=== PATIENT | female | born 1975 | race Caucasian/White ===

== ENCOUNTER 2019-05-07 18:41 | Emergency (ER) | payer OTHER ==
[2019-05-07 19:17] LABS: BILIRUBIN,URINE NEGATIVE (NEGATIVE); GLUCOSE, URINE (UA) NEGATIVE (NEGATIVE); KETONES,URINE (UA) NEGATIVE (NEGATIVE); LEUKOCYTE ESTERASE, URINE NEGATIVE (NEGATIVE); NITRITE,URINE NEGATIVE (NEGATIVE); OCCULT BLOOD,URINE NEGATIVE (NEGATIVE); PROTEIN,URINE NEGATIVE (NEGATIVE); UROBILINOGEN,URINE 0.2 (NORMAL) E.U./dL (NORMAL)
[2019-05-07 19:24] LABS: CLARITY,URINE CLEAR (CLEAR)
--- NOTE | 2019-05-07 20:04 | ED Physician Documentation ---
History of Present Illness - Stated complaint Stated Complaint: FEMALE - Chief complaint Chief Complaint: General - History obtained from History obtained from: Patient - Additonal information Additional information: Patient is a previously healthy 44-year-old female presenting with rash in the groin over the past several days. Patient is currently undergoing therapy with Macrobid for known UTI and reports the symptoms have resolved. Patient reports that she was swimming [place], camping, and having multiple sexual encounters with her over the past few days which she believes led to the rash.Patient denies history of STDs or concerns for such. Patient denies other vaginal bleeding, pain, or discharge. She also denies abdominal pain, nausea, vomiting, stool changes, or fever. No other improving or worsening factors noted. Review of Systems Constitutional: denies: Fever GI: denies: Abdominal Pain, Nausea, Vomiting, Diarrhea : denies: Dysuria, Vaginal bleeding Skin: reports: Rash PD PAST MEDICAL HISTORY - Past Medical History Past Medical History: Yes GI: GERD - Past Surgical History Past Surgical History: No - Present Medications Home Medications: Ambulatory Orders Medication Instructions Recorded Confirmed Cephalexin [Keflex] 500 mg PO Q6H #28 capsule 05/07/19 Meloxicam [Mobic] 0 mg PO DAILY 05/07/19 05/07/19 Pantoprazole Sodium 0 mg PO DAILY 05/07/19 05/07/19 Sulfamethox/Trimeth 800/160 1 each PO BID #14 tablet 05/07/19 [Bactrim Ds 800/160] - Allergies Allergies/Adverse Reactions: Allergies Allergy/AdvReac Type Severity Reaction Status Date / Time No Known Drug Allergies Allergy Verified 05/07/19 19:01 PD ED PE NORMAL - Vitals Vital signs reviewed: Yes - General General: Alert and oriented X 3, No acute distress, Well developed/nourished - HEENT HEENT: Atraumatic, Moist mucous membranes - Neck Neck: Supple, no meningeal sign - Respiratory Respiratory: No respiratory distress - Abdomen Abdomen: Soft, Non tender, Non distended - Female Female : Other (Scattered pustules that are intact, as well as scattered scabbed over pustules with surrounding erythema present over the groin and labia majora.) - Derm Derm: No: No rash - Extremities Extremities: No deformity, No tenderness to palpate - Neuro Neuro: Alert and oriented X 3, No motor deficit, No sensory deficit - Psych Psych: Normal mood, Normal affect Results - Vitals Vitals: Vital Signs - 24 hr 05/07/19 18:58 Temperature 36.5 C Heart Rate 87 Respiratory 19 Rate Blood Pressure 120/84 H O2 Saturation 100 Oxygen O2 Source Room air - Labs Labs: Laboratory Tests 05/07/19 19:04 Urine Color YELLOW Urine Clarity CLEAR Urine pH 6.0 Ur Specific Angle Inlet <=1.005 Urine Protein NEGATIVE Urine Glucose (UA) NEGATIVE Urine Ketones NEGATIVE Urine Occult Blood NEGATIVE Urine Nitrite NEGATIVE Urine Bilirubin NEGATIVE Urine Urobilinogen 0.2 (NORMAL) Ur Leukocyte Esterase NEGATIVE Ur Microscopic Review NOT INDICATED Urine Culture Comments NOT INDICATED PD MEDICAL DECISION MAKING - ED course Complexity details: reviewed results, re-evaluated patient, considered differential, d/w patient ED course: Patient presenting with likely staph rash to the groin. Do not have high suspicion for herpes or other STDs, but STD testing sent from urine sample. Urinalysis did not reflect infection. Have lower suspicion for other intra- abdominal pathology given lack of other abdominal complaints. Discussed treat ment of staph infection with Keflex and Bactrim, as well as cessation of Macrobid as these prior antibiotics would address both skin infection and UTI. Given the risk of side effects with so many antibiotics, feel it is appropriate to discontinue at least the Macrobid and patient agrees. Discussed other supportive cares, return precautions, and follow-up as well. Patient voiced understanding and is comfortable with discharge plan. Departure - Departure Disposition: 01 Home, Self Care Clinical Impression: Rash Condition: Good Instructions: ED Staph Infec Abx Tx Only Follow-Up: Rosmery Curry PA-C [Primary Care Provider] - Within 3 Days Prescriptions: Cephalexin [Keflex] 500 mg PO Q6H #28 capsule Sulfamethox/Trimeth 800/160 [Bactrim Ds 800/160] 1 each PO BID #14 tablet Comments: Please keep area clean and dry using running water and soap only. Do not recommend against any topical ointments or creams. Recommend loose breathable clothing. May stop Macrobid and instead use Keflex and Bactrim for both UTI and likely staph rash to the groin. Please follow-up with primary care physician in next 2 to 3 days and return to ED sooner if experience worsening symptoms or have other concerns.
[2019-05-07 20:55] VITALS: BP 121/82
[2019-05-08 23:03] LABS: TRICHOMONAS VAGINALIS DNA NEGATIVE (NEGATIVE)
== END 2019-05-07 20:53 | disposition home or self-care (01) ==
LOC: ED 18:41
DX: R21 Rash and other nonspecific skin eruption (principal)
CPT/HCPCS: 81001; 81003; 87086; 87491; 87591; 87661; 99283; 99284